=== PATIENT | female | born 1985 | race African-American/Black ===

== ENCOUNTER 2022-06-24 13:05 | Emergency (ER) | payer OTHER ==
[~2022-06-24] VITALS: Ht 170.2 cm; Wt 125.2 kg
[2022-06-24] MEDS ORDERED: ACETAMINOPHEN 325 MG TAB PO ONE ×2 (14:15)
[2022-06-24] MEDS ORDERED: ACETAMINOPHEN 325 MG TAB ONE (14:30)
== END 2022-06-24 17:10 | disposition home or self-care (01) ==
LOC: FSED 13:18
DX: S30.1XXA Contusion of abdominal wall, initial encounter (principal); M54.50 Low back pain, unspecified; M25.561 Pain in right knee; Y04.0XXA Assault by unarmed brawl or fight, initial encounter; Y99.0 Civilian activity done for income or pay; F41.9 Anxiety disorder, unspecified; Z98.84 Bariatric surgery status
CPT/HCPCS: 72100; 74019; 81003; 81025; 99283